=== PATIENT | female | born 1985 | race Caucasian/White ===

== ENCOUNTER 2023-12-26 17:52 | Emergency (ER) | payer BC ==
[~2023-12-26] VITALS: Ht 157.5 cm; Wt 68.0 kg
[2023-12-26 19:39] VITALS: BP 156/98; PULSE 86; RESP 18; TEMP 98.3; O2SAT 97
== END 2023-12-26 19:39 | disposition home or self-care (01) ==
LOC: FSED 17:56
DX: S01.81XA Laceration without foreign body of other part of head, initial encounter (principal); R55 Syncope and collapse; W01.198A Fall on same level from slipping, tripping and stumbling with subsequent striking against other object, initial encounter; Y93.E1 Activity, personal bathing and showering; Y92.89 Other specified places as the place of occurrence of the external cause; R94.31 Abnormal electrocardiogram [ECG] [EKG]
CPT/HCPCS: 70450; 72125; 80053; 82553; 84484; 85025; 85379; 93005; 99283